=== PATIENT | male | born 1975 | race Caucasian/White ===

== ENCOUNTER → 2021-10-14 | Outpatient (CLI) | payer OTHER ==
[~2021-10-14] MED LIST: Bactrim Ds Tab1 EACH PO; CEPH500 PO; OXYACE5T PO
[2021-10-14 17:04] LABS: BASOPHILS PERCENT AUTO 1 % (0-2); EOSINOPHILS ABSOLUTE AUTO 0.39 K/mm3 (0.00-0.68); EOSINOPHILS PERCENT AUTO 3 % (0-6); Hematocrit 42.6 % (37.0-53.0); Hemoglobin 14.9 g/dL (13.5-17.5); IMMATURE GRAN ABSOLUTE AUTO 0.03 K/mm3 (0.00-0.10); IMMATURE GRAN PERCENT AUTO 0 % (0-1); LYMPHOCYTES ABSOLUTE AUTO 3.19 K/mm3 (0.84-5.20); LYMPHOCYTES PERCENT AUTO 28 % (21-46); MONOCYTES ABSOLUTE AUTO 0.81 K/mm3 (0.16-1.47); MONOCYTES PERCENT AUTO 7 % (4-13); Mean Corpuscular HGB 31.2 pg (26.0-34.0); Mean Corpuscular Volume 89 fL (80-100); Mean Platelet Volume 9.8 fL (9.1-12.4); NEUTROPHILS ABSOLUTE AUTO 7.02 K/mm3 (1.96-9.15); NEUTROPHILS PERCENT AUTO 61 % (41-73); Platelet Count 269 K/mm3 (150-400); RDW Standard Deviation 39.6 fL (35.1-46.3); Red Blood Cell Count 4.77 M/mm3 (4.30-5.90); White Blood Cell Count 11.54 K/mm3 (4.00-11.30)
[2021-10-14 17:22] LABS: Alanine Aminotransfer (ALT/SGP 52 U/L (12-78); Albumin, Blood 3.9 g/dL (3.4-5.0); Albumin/Globulin Ratio 1.2 (0.8-1.8); Alk Phos 66 U/L (50-136); Anion Gap 5 mmol/L (6-16); Aspartate Aminotrans (AST/SGOT 24 U/L (12-37); Bilirubin, Total 0.6 mg/dL (0.1-1.0); Blood Urea Nitrogen 12 mg/dL (8-24); Bun/Creatinine Ratio 13.2 (12.0-20.0); CHOL/HDL RATIO 5.3; CO2, Blood 31 mmol/L (21-32); Calcium, Blood 9.2 mg/dL (8.5-10.1); Chloride, Blood 104 mmol/L (98-108); Cholesterol 234 mg/dL (50-200); Creatinine, Blood 0.91 mg/dL (0.60-1.20); Globulin, Blood 3.3 g/dL (2.2-4.0); Glomerular Filtration Rate 107 (60-); Glucose, Blood 169 mg/dL (70-99); HDL Cholesterol 44 mg/dL (>39); LDL/HDL RATIO 2.9; Low Density Lipoprotein Chol 126 mg/dL (0-110); Potassium, Blood 3.4 mmol/L (3.5-5.5); Sodium, Blood 140 mmol/L (136-145); Total Protein, Blood 7.2 g/dL (6.4-8.2); Triglycerides 321 mg/dL (30-160); Very Low Density Lipoprot Chol 64 mg/dL (6-32)
[2021-10-14 19:29] LABS: Microalb/Creat Ratio UR, Rand 23.611 mg/g (0.000-30.000); Microalbumin, Random Urine 42.5 mg/L (0.000-20.000)
== END | disposition home or self-care (01) ==
LOC: LAB 16:51 → LAB SHORT 16:51
PROVIDERS: Family Medicine
DX: I10 Essential (primary) hypertension (principal)
CPT/HCPCS: 80053; 80061; 82043; 82570; 84443; 85025

== ENCOUNTER → 2022-07-22 | Outpatient (CLI) | payer OTHER ==
[2022-07-22 19:04] LABS: BASOPHILS ABSOLUTE AUTO 0.15 K/mm3 (0.00-0.23); BASOPHILS PERCENT AUTO 1 % (0-2); EOSINOPHILS ABSOLUTE AUTO 0.72 K/mm3 (0.00-0.68); EOSINOPHILS PERCENT AUTO 5 % (0-6); Hematocrit 47.3 % (37.0-53.0); Hemoglobin 16.3 g/dL (13.5-17.5); IMMATURE GRAN ABSOLUTE AUTO 0.04 K/mm3 (0.00-0.10); IMMATURE GRAN PERCENT AUTO 0 % (0-1); LYMPHOCYTES ABSOLUTE AUTO 3.35 K/mm3 (0.84-5.20); LYMPHOCYTES PERCENT AUTO 25 % (21-46); MONOCYTES ABSOLUTE AUTO 0.99 K/mm3 (0.16-1.47); MONOCYTES PERCENT AUTO 7 % (4-13); Mean Corpuscular HGB 30.8 pg (26.0-34.0); Mean Corpuscular HGB Conc 34.5 g/dL (31.5-36.5); Mean Corpuscular Volume 89 fL (80-100); Mean Platelet Volume 9.5 fL (9.1-12.4); NEUTROPHILS ABSOLUTE AUTO 8.14 K/mm3 (1.96-9.15); NEUTROPHILS PERCENT AUTO 61 % (41-73); Platelet Count 334 K/mm3 (150-400); RDW Coefficient Variation 12.1 % (11.7-14.2); RDW Standard Deviation 39.7 fL (35.1-46.3); Red Blood Cell Count 5.29 M/mm3 (4.30-5.90); White Blood Cell Count 13.39 K/mm3 (4.00-11.30)
[2022-07-22 19:25] LABS: Very Low Density Lipoprot Chol 32 mg/dL (6-32)
[2022-07-22 19:33] LABS: Alanine Aminotransfer (ALT/SGP 54 U/L (12-78); Albumin, Blood 4.2 g/dL (3.4-5.0); Albumin/Globulin Ratio 1.1 (0.8-1.8); Alk Phos 71 U/L (50-136); Anion Gap 6 mmol/L (6-16); Aspartate Aminotrans (AST/SGOT 29 U/L (12-37); Bilirubin, Total 1.3 mg/dL (0.1-1.0); Blood Urea Nitrogen 9 mg/dL (8-24); Bun/Creatinine Ratio 10.6 (12.0-20.0); CHOL/HDL RATIO 3.9; CO2, Blood 28 mmol/L (21-32); Calcium, Blood 9.4 mg/dL (8.5-10.1); Chloride, Blood 104 mmol/L (98-108); Cholesterol 206 mg/dL (50-200); Creatinine, Blood 0.85 mg/dL (0.60-1.20); Globulin, Blood 3.7 g/dL (2.2-4.0); Glomerular Filtration Rate 109 (60-); Glucose, Blood 109 mg/dL (70-99); HDL Cholesterol 53 mg/dL (>39); LDL/HDL RATIO 2.3; Low Density Lipoprotein Chol 121 mg/dL (0-110); Potassium, Blood 3.6 mmol/L (3.5-5.5); Sodium, Blood 138 mmol/L (136-145); Total Protein, Blood 7.9 g/dL (6.4-8.2); Triglycerides 162 mg/dL (30-160)
[2022-07-22 20:01] LABS: Creatinine, Urine Random 64.4 mg/dL (27.00-270.00); Microalb/Creat Ratio UR, Rand 21.584 mg/g (0.000-30.000); Microalbumin, Random Urine 13.9 mg/L (0.000-20.000)
== END | disposition home or self-care (01) ==
LOC: LAB 16:00 → LAB SHORT 16:00
PROVIDERS: Family Medicine
DX: E11.9 Type 2 diabetes mellitus without complications (principal); I10 Essential (primary) hypertension
CPT/HCPCS: 80053; 80061; 82043; 82570; 84443; 85025

== ENCOUNTER 2023-02-09 12:51 | Emergency (ER) | payer OTHER ==
[~2023-02-09] VITALS: Ht 188 cm; Wt 124.7 kg
[2023-02-09 13:00] VITALS: BP 174/120
[2023-02-09] MEDS ORDERED: Robaxin750 MG PO (14:50)
[2023-02-09] MEDS ORDERED: IBUP800 PO (14:50)
== END 2023-02-09 15:49 | disposition home or self-care (01) ==
LOC: ER 12:51
DX: S00.81XA Abrasion of other part of head, initial encounter (principal); M54.6 Pain in thoracic spine; V89.2XXA Person injured in unspecified motor-vehicle accident, traffic, initial encounter; F17.210 Nicotine dependence, cigarettes, uncomplicated; Z88.0 Allergy status to penicillin; Z79.899 Other long term (current) drug therapy; Z23 Encounter for immunization
CPT/HCPCS: 72070; 90471; 90714; 99284-25; A9270

== ENCOUNTER 2023-12-01 19:01 | Emergency (ER) | payer OTHER ==
[~2023-12-01] VITALS: Ht 182.9 cm; Wt 127.0 kg
[~2023-12-01 19:01] MED LIST changes: +IBUP800 PO; +Robaxin750 MG PO
[2023-12-01] MEDS ORDERED: Diphth,Pertuss(Acell),Tet Vac 0.5 ML VIAL IM ONE (22:20)
[2023-12-01] MEDS ORDERED: Ondansetron 4 MG SoluTab SL ONE (23:15)
[2023-12-01] MEDS ORDERED: Albuterol 2.5 MG/3 ML VIAL INH SCH (23:15)
[2023-12-01] MEDS ORDERED: Cefuroxime Axetil 250 MG Tab PO ONE (23:30)
[2023-12-01] MEDS ORDERED: CEFU500T30 PO (23:51)
== END 2023-12-01 23:56 | disposition home or self-care (01) ==
LOC: ER 19:01
DX: S61.215A Laceration without foreign body of left ring finger without damage to nail, initial encounter (principal); S30.811A Abrasion of abdominal wall, initial encounter; J45.901 Unspecified asthma with (acute) exacerbation; Z88.0 Allergy status to penicillin; W31.89XA Contact with other specified machinery, initial encounter
CPT/HCPCS: 12002; 73140; 94640; 94664; 99283-25; A9270

== ENCOUNTER → 2024-05-16 | Outpatient (CLI) | payer OTHER ==
[~2024-05-16] MED LIST changes: +CEFU500T30 PO
[2024-05-16 20:09] LABS: CHOL/HDL RATIO 5.2; Cholesterol 238 mg/dL (50-200); HDL Cholesterol 46 mg/dL (>39); LDL/HDL RATIO 2.4; Low Density Lipoprotein Chol 112 mg/dL (0-110); Triglycerides 398 mg/dL (30-160); Very Low Density Lipoprot Chol 79 mg/dL (6-32)
== END ==
LOC: LAB 19:09 → LAB SHORT 19:09
PROVIDERS: Nurse Practitioner Family
DX: E11.8 Type 2 diabetes mellitus with unspecified complications (principal); E78.5 Hyperlipidemia, unspecified
CPT/HCPCS: 80061; 83036